=== PATIENT | female | born 1960 | race Caucasian/White ===

== ENCOUNTER 2022-03-11 07:46 | Day surgery (SDC) | payer BC ==
[~2022-03-11] VITALS: Ht 160 cm; Wt 68.7 kg
[~2022-03-11 07:46] MED LIST: ACYCLOVIR400 MG PO; AMBIEN5 MG PO; CALCIUM 600 MG1 EA10 PO; CARAFATE1 GM PO; CETIRIZINE HCL10 MG PO; DARIFENACIN ER15 MG PO; ESTRACE0.5 MG PO; FLAXSEED OIL1000 M1 PO; FLUTICASONE PRO16 GM NAS; IMITREX100 MG PO; MAGNESIUM250 MG PO; METHOCARBAMOL500 MG PO; PROPRANOLOL HCL20 MG PO; RESTASIS1 DROP OD; TOLTERODINE TART4 MG PO; VALIUM2 MG PO; VENLAFAXINE H37.5 MG PO
--- NOTE | 2022-03-11 08:10 | NUR ---
RT COLLECTED RAPID COVID 19, RSV, AND FLU SWAB PER DR REQUEST USING IN HOUSE LAB WITH NO COMPLICATIONS AT THIS TIME.
--- NOTE | 2022-03-11 09:36 | NUR ---
03/11/22 0936 Jackie Hernandez 0929 PATIENT ARRIVES TO PACU AWAKE, BUT DROWSY. DENIES PAIN OR NAUSEA. RESP EVEN AND UNLABORED, NC ON AT 2 LITERS, TURNED OFF ON ARRIVAL TO PACU. 0934 PATIENT REPOSITIONS SELF TO BACK. HOB ELEVATED. SITTING UP DRINKING JUICE. CONTINUES TO DENY PAIN OR NAUSEA. RESP EVEN AND UNLABORED, ROOM AIR SATS >95%.
--- NOTE | 2022-03-16 07:17 | OR ---
[facility] [address] [place], [place] [address] Signed DATE OF OPERATION: 03/11/2022 SURGEON: Moe Ragland MD PREOPERATIVE DIAGNOSES: 1. Screening. 2. Unremarkable colonoscopy in 2012 at age 51. POSTOPERATIVE DIAGNOSIS: Long redundant colon. PROCEDURE: Colonoscopy without biopsy. ESTIMATED BLOOD LOSS: None. INDICATIONS: Gissel is a 61-year-old female, asked to see me for a followup colonoscopy. I helped her with a screening colonoscopy in 2011 at the age of 51. At that time, we thought her mother had colonic polyps. In the meantime, she told me that is not true, therefore she returns now for her followup colonoscopy. She has a long history of epigastric abdominal pain associated with irritable bowel syndrome. She often has nausea, vomiting, and diarrhea. She had evaluation back in 2010, which was negative. More recent ultrasound was also negative. Her recent HIDA scan was negative. She was not interested in upper endoscopy at this time. She has been using sucralfate with good results. In the office, I gave Gissel a pamphlet on colonoscopy. She understands the nature of the test. There is risk including, but not limited to gas bloating, crampy abdominal pain, bleeding, perforation requiring surgery, and missed diagnosis. We also reviewed the need for IV conscious sedation. She had expressed understanding and wished to proceed. DESCRIPTION OF PROCEDURE: Gissel was taken into our endoscopy suite and placed in the left lateral decubitus position. She was given 7 mg of Versed and 150 mcg fentanyl to cover the case. A digital rectal exam was performed and this was unremarkable. She had good sphincter tone. No external hemorrhoids. The adult colonoscope had been introduced and advanced under direct visualization of camera. She has a somewhat long redundant colon. It took a while in extra sedation and abdominal compression in order to advance the scope. We into the cecum itself. We could easily see the appendiceal orifice and the Electronically Signed By: MOE RAGLAND MD 03/11/22 1145 Electronically Signed By: MOE RAGLAND MD 03/16/22 0736 PATIENT NAME: GISSEL JOYNER OPERATIVE REPORT DATE OF : 62 REPORT #: [id number] PHYSICIAN: MOE RAGLAND MD PCP: IRENA MCLEAN REPORT IS CONFIDENTIAL AND NOT TO BE RELEASED WITHOUT AUTHORIZATION [facility] [address], [place] [address] Signed ileocecal valve. Her prep was good. The scope was slowly withdrawn. We took several pictures throughout for photodocumentation. She has no diverticulosis. There were no polyps. Upon retroflexion of scope, there was no Pathology above the anal canal. After this, the gas was suctioned out, colonoscope removed. Gissel tolerated the procedure quite well. RECOMMENDATIONS: Gissel can follow up in 10 years for repeat screening colonoscopy. Moe Ragland MD ALB/MODL /[id number] cc: Moe Ragland MD Patient Chart ANA Elliott Copies: MOE RAGLAND MD, LINDA PA ~ Electronically Signed By: MOE RAGLAND MD 03/11/22 1145 Electronically Signed By: MOE RAGLAND MD 03/16/22 0736 PATIENT NAME: GISSEL JOYNER OPERATIVE REPORT DATE OF : 62 REPORT #: [id number] PHYSICIAN: MOE RAGLAND MD PCP: IRENA MCLEAN REPORT IS CONFIDENTIAL AND NOT TO BE RELEASED WITHOUT AUTHORIZATION
== END 2022-03-11 10:00 | disposition home or self-care (01) ==
LOC: DS 07:46 → OPS 07:46 → DS 09:00 → OPS 09:00
PROVIDERS: ATTEND Colon & Rectal Surgery
PROC: 0DJD8ZZ Inspection of Lower Intestinal Tract, Via Natural or Artificial Opening Endoscopic (ICD-10-PCS; principal; 2022-03-11 09:00)
DX: K58.0 Irritable bowel syndrome with diarrhea (principal); Q43.8 Other specified congenital malformations of intestine; G43.909 Migraine, unspecified, not intractable, without status migrainosus; E78.5 Hyperlipidemia, unspecified; G47.33 Obstructive sleep apnea (adult) (pediatric); I10 Essential (primary) hypertension; Z88.2 Allergy status to sulfonamides; Z88.5 Allergy status to narcotic agent; Z88.8 Allergy status to other drugs, medicaments and biological substances; Z20.822 Contact with and (suspected) exposure to COVID-19
CPT/HCPCS: 99153; C9803; G0500; J2250; J3010; J7121; U0003